=== PATIENT | female | born 1980 | race Caucasian/White ===

== ENCOUNTER 2022-11-22 00:43 | Emergency (ER) | payer OTHER ==
[~2022-11-22] VITALS: Ht 172.7 cm; Wt 59.0 kg
[~2022-11-22 00:43] MED LIST: IBUPROFEN800 MG PO; NORCO 5-325 TA1 EACH PO
[2022-11-22 02:05] LABS: INFLUENZA B NAA NEGATIVE (NEGATIVE); RESPIRATORY SYNCYTIAL VIR NAA NEGATIVE (NEGATIVE)
[2022-11-22 02:54] VITALS: BP 118/78
== END 2022-11-22 02:56 | disposition home or self-care (01) ==
LOC: ED 00:43
PROVIDERS: Emergency Medicine
DX: U07.1 COVID-19 (principal)
CPT/HCPCS: 70450; 87502; 99284-25; A9270; C9803; U0002